=== PATIENT | male | born 1995 | race Caucasian/White ===

== ENCOUNTER 2017-08-16 08:11 | Emergency (ER) | payer OTHER ==
[~2017-08-16] VITALS: Ht 182.9 cm; Wt 69.5 kg
[2017-08-16 08:17] VITALS: Ht 182.9 cm; Wt 69.5 kg
[2017-08-16] MEDS ORDERED: QUET1TAB34 PO (08:40)
[2017-08-16] MEDS ORDERED: BUPR-79 PO (08:40)
--- NOTE | 2017-08-16 08:45 | EMERGENCY ROOM VISIT NOTE ---
History First contact with patient: 08:20 Chief Complaint: LEG PAIN,LEG INJURY Stated Complaint: SEVERE PAIN IN L LEG History of Present Illness The patient is a 22 year old male who presents to the Emergency Room via private vehicle with complaints of "severe pain and left leg". The patient states that he began with shortness of breath and leg pain yesterday. He notes it is in the left medial aspect. He rates the pain as an 8/10. He denies any trauma or injury and notes he awoke with this. It is sharp and intense in nature and he notes that it radiates to the inner left groin region. He notes that the leg feels stiff and heavy and increased with walking. He rates the overall pain as a 5/10. He denies any pain medication. He denies any headache , fevers, chills, chest pain, abdominal pain, nausea, vomiting, diarrhea, incontinence, urinary symptoms. He notes that he smokes 3-4 cigarettes a day and denies drug use. Review of Systems A complete 10-point Review of Systems was discussed with the patient, with pertinent positives and negatives listed in the History of Present Illness. All remaining Review of Systems questions can be considered negative unless otherwise specified. Past Medical/Surgical History No pertinent. Family History No pertinent. Social History Smoking Status: Current Every Day Smoker Pt. lives locally Current/Historical Medications Scheduled Bupropion (Wellbutrin Sr), 150 MG PO DAILY Quetiapine Fumarate (Seroquel), 100 MG PO DAILY Physical Exam Vital Signs Date Time Temp Pulse Resp B/P (MAP) Pulse Ox O2 Delivery O2 Flow Rate FiO2 08/16/17 12:04 36.7 84 18 124/90 96 08/16/17 11:41 84 18 124/90 96 08/16/17 10:10 69 18 145/86 96 Room Air 08/16/17 09:14 66 08/16/17 09:12 74 18 134/78 98 Room Air 08/16/17 09:11 97 Room Air 08/16/17 08:17 36.7 78 18 152/95 96 Room Air Physical Exam VITAL SIGNS - Vital signs and nursing notes were reviewed. Stable. GENERAL - 22-year-old male appearing his stated age who is in no acute distress. Communicates well with provider and answers questions appropriately. SKIN - Without rashes. L medial thigh unremarkable. HEAD - NC/AT. EYES - Sclera anicteric. Palpebral conjunctiva pink and moist with no injection noted. EARS - No deformities of external structures noted on gross examination bilaterally. NOSE - Midline and without cyanosis. No epistaxis or purulent drainage noted. MOUTH/OROPHARYNX - Without perioral cyanosis. NECK - Neck with FROM. No nuchal rigidity. LUNGS - Chest wall symmetric without accessory muscle use, intercostals retractions, or central cyanosis. Normal vesicular breath sounds CTA B/L. No wheezes, rales, or rhonchi appreciated. CARDIAC - RRR with S1/S2. No murmur, rubs, or gallops appreciated. ABDOMEN - Abdominal contour normal without pulsations or visible masses. BS normoactive all four quadrants. No tenderness, palpable masses, hepatosplenomegaly, or ascites noted. EXTREMITIES - No clubbing or peripheral cyanosis. No pretibial edema present.Pulses in tact LLE. +5/5 strength noted in UE/LE bilaterally. NEUROLOGIC - Cranial nerves II through XII grossly intact. Sensory intact to light touch throughout. PSYCH - A&O, and cooperates fully with examiner. Pt is very pleasant and interacts well with examiner. Medical Decision & Procedures ER Provider Diagnostic Interpretation: CHEST ONE VIEW PORTABLE HISTORY: Dyspnea, L leg pain COMPARISON: None. FINDINGS: The lungs are clear. Cardiac silhouette is normal in size. No pleural effusions. No pneumothorax. IMPRESSION: No acute process. Electronically signed by: Michael Hanks M.D. 08/16/2017 9:13 AM Dictated Date/Time: 08/16/2017 9:11 AM LEFT FEMUR 4 VIEWS HISTORY: L leg pain COMPARISON: None. FINDINGS: There is no fracture or dislocation. Soft tissues are unremarkable. No radiopaque foreign bodies. IMPRESSION: Unremarkable left femur. Electronically signed by: Michael Hanks M.D. 08/16/2017 9:20 AM Dictated Date/Time: 08/16/2017 9:18 AM ULTRASOUND LEFT LOWER EXTREMITY VENOUS CLINICAL HISTORY: Left thigh pain. COMPARISON STUDY: No priors. TECHNIQUE: Real-time, grayscale, and color Doppler sonography of the deep veins of the left lower extremity was performed from the inguinal crease to the calf. Compression and augmentation were utilized. FINDINGS: There is no sonographic evidence of deep venous thrombosis identified in the left lower extremity. The common femoral, superficial femoral, and popliteal veins are patent and normally compressible. The greater saphenous vein and the profunda femoris vein at the junction with the common femoral vein are clear. The visualized calf veins are patent. IMPRESSION: There is no sonographic evidence of deep venous thrombosis identified in the left lower extremity. Electronically signed by: Mike Campos M.D. 08/16/2017 10:00 AM Dictated Date/Time: 08/16/2017 10:00 AM Laboratory Results 08/16/17 08:45 Red Blood Count 4.83, Mean Corpuscular Volume 94.2, Mean Corpuscular Hemoglobin 34.0, Mean Corpuscular Hemoglobin Concent 36.0, Mean Platelet Volume 9.0, Neutrophils (%) (Auto) 68.9, Lymphocytes (%) (Auto) 18.6, Monocytes (%) (Auto) 10.5, Eosinophils (%) (Auto) 1.2, Basophils (%) (Auto) 0.4, Neutrophils # (Auto ) 6.26, Lymphocytes # (Auto) 1.69, Monocytes # (Auto) 0.96, Eosinophils # (Auto ) 0.11, Basophils # (Auto) 0.04 08/16/17 08:45 Test 08/16/17 08:45 White Blood Count 9.10 K/uL (4.8-10.8) Red Blood Count 4.83 M/uL (4.7-6.1) Hemoglobin 16.4 g/dL (14.0-18.0) Hematocrit 45.5 % (42-52) Mean Corpuscular Volume 94.2 fL (80-100) Mean Corpuscular Hemoglobin 34.0 pg (25-34) Mean Corpuscular Hemoglobin Concent 36.0 g/dl (32-36) Platelet Count 208 K/uL (130-400) Mean Platelet Volume 9.0 fL (7.4-10.4) Neutrophils (%) (Auto) 68.9 % Lymphocytes (%) (Auto) 18.6 % Monocytes (%) (Auto) 10.5 % Eosinophils (%) (Auto) 1.2 % Basophils (%) (Auto) 0.4 % Neutrophils # (Auto) 6.26 K/uL (1.4-6.5) Lymphocytes # (Auto) 1.69 K/uL (1.2-3.4) Monocytes # (Auto) 0.96 K/uL (0.11-0.59) Eosinophils # (Auto) 0.11 K/uL (0-0.5) Basophils # (Auto) 0.04 K/uL (0-0.2) RDW Standard Deviation 42.2 fL (36.4-46.3) RDW Coefficient of Variation 12.3 % (11.5-14.5) Immature Granulocyte % (Auto) 0.4 % Immature Granulocyte # (Auto) 0.04 K/uL (0.00-0.02) Prothrombin Time 11.0 SECONDS (9.0-12.0) Prothromb Time International Ratio 1.0 (0.9-1.1) Activated Partial Thromboplast Time 30.1 SECONDS (21.0-31.0) Partial Thromboplastin Ratio 1.2 D-Dimer < 190 ug/L FEU (0-500) Anion Gap 6.0 mmol/L (3-11) Est Creatinine Clear Calc Drug Dose 129.4 ml/min Estimated GFR () 141.3 Estimated GFR (Non- 121.9 BUN/Creatinine Ratio 8.9 (10-20) Calcium Level 8.6 mg/dl (8.5-10.1) Total Bilirubin 0.8 mg/dl (0.2-1) Aspartate Amino Transf (AST/SGOT) 15 U/L (15-37) Alanine Aminotransferase (ALT/SGPT) 20 U/L (12-78) Alkaline Phosphatase 95 U/L (45-117) Total Creatine Kinase 134 U/L (39-308) Creatine Kinase MB 1.2 ng/ml (0.5-3.6) Creatine Kinase MB Ratio 0.9 (0-3.0) Troponin I < 0.015 ng/ml (0-0.045) Total Protein 7.2 gm/dl (6.4-8.2) Albumin 3.7 gm/dl (3.4-5.0) Globulin 3.5 gm/dl (2.5-4.0) Albumin/Globulin Ratio 1.1 (0.9-2) Medical Decision Patient was seen and evaluated as above. He presents to us today with pain in his left medial thigh region. There is no testicular, or abdominal pain. He does note shortness of breath. He is well on exam. Bedside EKG was obtained and reveals what appears to be normal sinus rhythm, possible left atrial enlargement, right axis deviation and questionable anterior infarct age indeterminate. Patient was informed upon this finding. He has no chest pain. Troponin is negative. CK-MB negative. D-dimer negative. Chest x-ray negative. Ultrasound and x-ray was obtained of the left leg. These were negative. No evidence of DVT or fracture. I suspect he likely has a musculoskeletal strain. There is no concern of leukocytosis or anemia. Coags normal. Metabolic panel normal. He notes he recently moved to the area one week ago and lives in [facility] but is not employed. I will have him follow with [facility]. In the evaluation and treatment of this patient, the following differential diagnoses were considered: Hip Fracture, Hip Dislocation, Greater Trochanteric Bursitis, Musculoskeletal Pain, Lumbar Radiculopathy. Impression Primary Impression: Leg pain, left Departure Information Dispostion Home / Self-Care Condition GOOD Referrals No Doctor, Assigned (PCP) [facility] Patient Instructions My [facility] Additional Instructions You have been treated in the Emergency Department for leg pain. For pain control, you can use the following [id number] medicines (if >12 yo): - Regular strength (325mg/tab) Tylenol (acetaminophen) 2 tabs every 4-6 hours as needed. Do not exceed 12 tablets in a 24 hour period. Avoid taking more than 3 grams (3000 mg) of Tylenol per day. This includes any other sources of acetaminophen you may take on a regular basis. - Regular strength (200 mg/tab) Advil (ibuprofen) 1-2 tabs every 4-6 hours as needed. Do not exceed a dose of 3200 mg per day. If this is a recent injury (<24 hrs), ice can be applied to the area of pain for the first 3 days to help decrease pain and inflammation. Ice massages can be performed by freezing water in a paper cup, peeling back the cup to expose the ice and then massaging over the affected area. Please follow with [facility] for leg pain and abnormal EKG Return to the Emergency Department if your current symptoms worsen despite treatment course outlined above.
[2017-08-16 09:00] LABS: BASO % 0.4 %; BASO ABS # 0.04 K/uL (0-0.2); COMPLETE YES; EOS % 1.2 %; HEMATOCRIT 45.5 % (42-52); IG% 0.4 %; LYMPH % 18.6 %; LYMPH ABS # 1.69 K/uL (1.2-3.4); MEAN CELL VOLUME 94.2 fL (80-100); MONO % 10.5 %; NEUT % 68.9 %; PLATELET COUNT 208 K/uL (130-400); RED BLOOD COUNT 4.83 M/uL (4.7-6.1)
[2017-08-16 09:11] VITALS: O2SAT 97
[2017-08-16 09:11] LABS: PARTIAL THROMBOPLASTIN RATIO 1.2
--- NOTE | 2017-08-16 09:15 | DIAGNOSTIC IMAGING REPORT ---
CHEST ONE VIEW PORTABLE HISTORY: Dyspnea, L leg pain COMPARISON: None. FINDINGS: The lungs are clear. Cardiac silhouette is normal in size. No pleural effusions. No pneumothorax. IMPRESSION: No acute process. Electronically signed by: Michael Hanks M.D. 08/16/2017 9:13 AM Dictated Date/Time: 08/16/2017 9:11 AM
[2017-08-16 09:20] LABS: ALT/SGPT 20 U/L (12-78); BLOOD UREA NITROGEN 8 mg/dl (7-18); BUN/CREATININE RATIO 8.9 (10-20); CALCIUM 8.6 mg/dl (8.5-10.1); CARBON DIOXIDE 26 mmol/L (21-32); CHLORIDE 108 mmol/L (98-107); CREATININE 0.88 mg/dl (0.60-1.40); GLUCOSE 110 mg/dl (70-99); POTASSIUM 3.6 mmol/L (3.5-5.1); SODIUM 140 mmol/L (136-145)
--- NOTE | 2017-08-16 09:21 | DIAGNOSTIC IMAGING REPORT ---
LEFT FEMUR 4 VIEWS HISTORY: L leg pain COMPARISON: None. FINDINGS: There is no fracture or dislocation. Soft tissues are unremarkable. No radiopaque foreign bodies. IMPRESSION: Unremarkable left femur. Electronically signed by: Michael Hanks M.D. 08/16/2017 9:20 AM Dictated Date/Time: 08/16/2017 9:18 AM
[2017-08-16 09:25] LABS: ALB/GLOB RATIO 1.1 (0.9-2); ALKALINE PHOSPHATASE 95 U/L (45-117); AST/SGOT 15 U/L (15-37); CKMB/CK RATIO 0.9 (0-3.0)
--- NOTE | 2017-08-16 10:02 | DIAGNOSTIC IMAGING REPORT ---
ULTRASOUND LEFT LOWER EXTREMITY VENOUS CLINICAL HISTORY: Left thigh pain. COMPARISON STUDY: No priors. TECHNIQUE: Real-time, grayscale, and color Doppler sonography of the deep veins of the left lower extremity was performed from the inguinal crease to the calf. Compression and augmentation were utilized. FINDINGS: There is no sonographic evidence of deep venous thrombosis identified in the left lower extremity. The common femoral, superficial femoral, and popliteal veins are patent and normally compressible. The greater saphenous vein and the profunda femoris vein at the junction with the common femoral vein are clear. The visualized calf veins are patent. IMPRESSION: There is no sonographic evidence of deep venous thrombosis identified in the left lower extremity. Electronically signed by: Mike Campos M.D. 08/16/2017 10:00 AM Dictated Date/Time: 08/16/2017 10:00 AM
[2017-08-16 12:04] VITALS: BP 124/90; PULSE 84; TEMP 36.7; O2SAT 96
== END 2017-08-16 12:05 | disposition home or self-care (01) ==
LOC: C.EDB 08:13 → C.EDA 12:05
DX: M79.605 Pain in left leg (principal); R06.02 Shortness of breath; F17.210 Nicotine dependence, cigarettes, uncomplicated

== ENCOUNTER 2023-02-09 22:24 | Inpatient (IN) ==
[2023-02-09 22:57] LABS: Basophils # (auto) 0.07 K/uL (0-0.2); Basophils % (auto) 0.8 %; Eosinophils # (auto) 0.49 K/uL (0-0.50); Eosinophils % (auto) 5.6 %; Hematocrit (blood only) 52.6 % (42.0-52.0); Hemoglobin 18.5 g/dl (14.0-18.0); Immature Granulocytes # (auto) 0.03 K/uL (0.01-0.20); Immature Granulocytes % (auto) 0.3 %; Lymphocytes # (auto) 2.84 K/uL (1.2-3.4); Lymphocytes % (auto) 32.3 %; Mean Corpuscular Hemoglobin 31.8 pg (25.0-34.0); Mean Corpuscular Hgb Conc 35.2 g/dL (32.0-36.0); Mean Corpuscular Volume 90.4 fL (80.0-100.0); Mean Platelet Volume 8.5 fL (9.4-12.4); Monocytes # (auto) 0.76 K/uL (0.11-0.59); Monocytes % (auto) 8.7 %; Neutrophils # (auto) 4.59 K/uL (1.40-6.50); Neutrophils % (auto) 52.3 %; Platelet Count 267 K/uL (130-400); RDW Coefficient of Variation 12.4 % (11.5-14.5); Red Blood Count 5.82 M/uL (4.70-6.10); White Blood Count 8.78 K/ul (4.8-10.8)
--- NOTE | 2023-02-09 23:01 | Emergency Department Note ---
History of Present Illness General Chief complaint: Mental Health Evaluation Stated complaint: MENTAL HEALTH EVAL (302) Time Seen by Provider: 02/09/23 22:53 History of Present Illness Maximum Pain Intensity: 4 27-year-old male presents emergency department reportedly spoke to crisis this evening as he was walking down the street and he picked up a quarter and flipped it stating that if it landed on heads to jump off a bridge if it landed on tails he would call crisis. Patient has a history of antisocial disorder and depression. Patient has been off his medications. Patient has suicidal ideation currently with a plan to jump off a bridge. 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 Patient denies nausea vomiting diarrhea abdominal pain chest pain shortness of breath. Patient has no other current complaints. Home Medications Medication Instructions Recorded Confirmed Type venlafaxine 150 mg 150 mg PO DAILY 02/09/23 02/09/23 History capsule,extended release 24 hr Allergies Allergy/AdvReac Type Severity Reaction Status Date / Time No Known Allergies Allergy Verified 05/31/21 07:50 Past Med/Surg History Medical History Antisocial personality disorder Anxiety Asthma Bronchitis Cerebral palsy Depression Nicotine addiction Surgical History No significant past surgical history Family History Other No significant family history Social History Smoking Status: Current every day smoker Tobacco Type: Cigarettes Hx Substance Use: No Preferred Language: Khmer marital status: Single Current Living Situation: Alone current occupational status: employed Feels Safe at Home: No Gender Identity: Male Review of Systems A total of 10 systems reviewed and were otherwise negative Psychiatric: + depression and + suicidal ideation Physical Exam Vital Signs Vital Signs - 24 hr 02/09/23 22:38 02/10/23 01:05 02/10/23 03:00 Temperature 36.5 C Temperature Source Oral Pulse Rate 83 Pulse Rate [Right Finger] 72 Pulse Rhythm [Right Finger] Regular Pulse Strength [Right Finger] Normal Respiratory Rate 18 16 Respiratory Effort / Characteristics Non-Labored Spontaneous Non-Labored Non-Labored Respiratory Depth Normal Deep Normal Respiratory Pattern Regular Regular Blood Pressure 134/77 Blood Pressure [Left Arm] 129/72 Blood Pressure Mean 96 Blood Pressure Mean [Left Arm] 91 Blood Pressure Position [Left Arm] Lying Pulse Oximetry 97 97 Oxygen Delivery Method Room Air Room Air Room Air Sepsis Recent Fever Within 48 Hours No Sepsis New/Unexplained Change in Mental Status No Sepsis Action Taken by Nursing No Action Required GENERAL: Patient is awake alert in no acute distress patient is resting comfortably and showing no signs of anxiety EYES: The conjunctivae are clear. The pupils are round and reactive. EARS, NOSE, MOUTH AND THROAT: The nose is without any evidence of any deformity. Mucous membranes are moist. Tongue is midline. NECK: The neck is nontender and supple. RESPIRATORY: Normal respiratory effort is noted there is no evidence of wheezing rhonchi or rales CARDIOVASCULAR: Regular rate and rhythm noted there no murmurs rubs or gallops normal S1 normal S2. GASTROINTESTINAL: The abdomen is soft. Abdomen is nontender. BACK: No midline tenderness or or step-off noted range of motion in flexion ex tension as well as rotation no signs of muscle spasm noted MUSCULOSKELETAL/EXTREMITIES: There is no evidence of gross deformity full range of motion is noted in the hips and shoulders. SKIN: There is no obvious evidence of any rash. There are no petechiae, pallor or cyanosis noted. NEUROLOGIC: Patient is awake alert and oriented x3 strength is symmetric PSYCH: Suicidal ideation Course Reevaluation(s) Reevaluation #1: Patient's resting in no distress. Patient was evaluated by 3 S. and accepted for admission Time: 03:20 Medical Decision Making Medical Records Attestation: I reviewed the patient's medical records. Home Medications Current Medication List: was personally reviewed by me Laboratory Data Attestation: I reviewed the patient's lab results. Lab work interpreted by me there is hemoconcentration of the CBC, the patient is positive for marijuana 02/09/23 22:39 02/09/23 22:39 Lab Results 02/09/23 02/09/23 02/09/23 Range/Units 22:39 22:39 22:39 WBC 8.78 (4.8-10.8) K/ul RBC 5.82 (4.70-6.10) M/uL Hgb 18.5 H (14.0-18.0) g/dl Hct 52.6 H (42.0-52.0) % MCV 90.4 (80.0-100.0) fL MCH 31.8 (25.0-34.0) pg MCHC 35.2 (32.0-36.0) g/dL RDW Std Deviation 41.0 (36.4-46.3) fL RDW Coeff of Jadyn 12.4 (11.5-14.5) % Plt Count 267 (130-400) K/uL MPV 8.5 L (9.4-12.4) fL Immature Gran % (Auto) 0.3 % Neut % (Auto) 52.3 % Lymph % (Auto) 32.3 % [place] % (Auto) 8.7 % Eos % (Auto) 5.6 % Baso % (Auto) 0.8 % Neut # (Auto) 4.59 (1.40-6.50) K/uL Lymph # (Auto) 2.84 (1.2-3.4) K/uL [place] # (Auto) 0.76 H (0.11-0.59) K/uL Eos # (Auto) 0.49 (0-0.50) K/uL Baso # (Auto) 0.07 (0-0.2) K/uL Immature Gran # (Auto) 0.03 (0.01-0.20) K/uL Sodium 138 (136-145) mmol/L Potassium 3.7 (3.5-5.1) mmol/L Chloride 103 (98-107) mmol/L Carbon Dioxide 27 (21-32) mmol/L Anion Gap 8 (3-11) BUN 18 (6-23) mg/dl Creatinine 1.13 (0.6-1.4) mg/dl Est Cr Clr Drug Dosing 104.2 ml/min Est GFR ( Amer) 102.7 ml/min Est GFR (Non-Af Amer) 88.6 ml/min BUN/Creatinine Ratio 15.9 (10-20) Glucose 96 (70-99(Fasting)) mg/dl Calcium 9.5 (8.6-10.3) mg/dl Total Bilirubin 0.4 (0.2-1.0) mg/dl AST 22 (13-39) U/L ALT 13 (7-52) U/L Alkaline Phosphatase 99 (34-104) U/L Total Protein 8.0 (6.0-8.3) gm/dl Albumin 4.6 (3.4-5.0) gm/dl Globulin 3.4 (2.5-4.0) gm/dl Albumin/Globulin Ratio 1.4 (0.9-2) TSH 0.738 (0.300-4.500) uIu/ml Urine Color Urine Appearance (Clear) Urine pH (4.5-7.5) Ur Specific [place] (1.000-1.030) Urine Protein (Negative) Urine Glucose (UA) (Negative) Urine Ketones (Negative) Urine Blood (Negative) Urine Nitrite (Negative) Urine Bilirubin (Negative) Urine Urobilinogen (Negative) Ur Leukocyte Esterase (Negative) Urine WBC (Auto) (0-5) /hpf Urine RBC (Auto) (0-4) /hpf U Hyaline Cast (Auto) (0-5) /lpf U Epithel Cells (Auto) (0-5) /lpf Urine Bacteria (Auto) (Negative) Salicylates (3.0-30) mg/dl Urine Opiates Screen (Neg) Ur Methadone, Qual (Neg) Acetaminophen (10-30) ug/ml Urine Barbiturates (Neg) Ur Phencyclidine (PCP) (Neg) U Amphetamin/Meth Scrn (Neg) MDMA (Ecstasy) Screen (Neg) U Benzodiazepines Scrn (Neg) Ur Cocaine Metabolite (Neg) U Marijuana (THC) Screen (Neg) Ethyl Alcohol mg/dL (<10.0) mg/dl SARS-CoV-2, RNA, NAAT (NEGATIVE) 02/09/23 02/09/23 02/09/23 Range/Units 22:39 22:39 22:39 WBC (4.8-10.8) K/ul RBC (4.70-6.10) M/uL Hgb (14.0-18.0) g/dl Hct (42.0-52.0) % MCV (80.0-100.0) fL MCH (25.0-34.0) pg MCHC (32.0-36.0) g/dL RDW Std Deviation (36.4-46.3) fL RDW Coeff of Jadyn (11.5-14.5) % Plt Count (130-400) K/uL MPV (9.4-12.4) fL Immature Gran % (Auto) % Neut % (Auto) % Lymph % (Auto) % [place] % (Auto) % Eos % (Auto) % Baso % (Auto) % Neut # (Auto) (1.40-6.50) K/uL Lymph # (Auto) (1.2-3.4) K/uL [place] # (Auto) (0.11-0.59) K/uL Eos # (Auto) (0-0.50) K/uL Baso # (Auto) (0-0.2) K/uL Immature Gran # (Auto) (0.01-0.20) K/uL Sodium (136-145) mmol/L Potassium (3.5-5.1) mmol/L Chloride (98-107) mmol/L Carbon Dioxide (21-32) mmol/L Anion Gap (3-11) BUN (6-23) mg/dl Creatinine (0.6-1.4) mg/dl Est Cr Clr Drug Dosing ml/min Est GFR ( Amer) ml/min Est GFR (Non-Af Amer) ml/min BUN/Creatinine Ratio (10-20) Glucose (70-99(Fasting)) mg/dl Calcium (8.6-10.3) mg/dl Total Bilirubin (0.2-1.0) mg/dl AST (13-39) U/L ALT (7-52) U/L Alkaline Phosphatase (34-104) U/L Total Protein (6.0-8.3) gm/dl Albumin (3.4-5.0) gm/dl Globulin (2.5-4.0) gm/dl Albumin/Globulin Ratio (0.9-2) TSH (0.300-4.500) uIu/ml Urine Color Urine Appearance (Clear) Urine pH (4.5-7.5) Ur Specific [place] (1.000-1.030) Urine Protein (Negative) Urine Glucose (UA) (Negative) Urine Ketones (Negative) Urine Blood (Negative) Urine Nitrite (Negative) Urine Bilirubin (Negative) Urine Urobilinogen (Negative) Ur Leukocyte Esterase (Negative) Urine WBC (Auto) (0-5) /hpf Urine RBC (Auto) (0-4) /hpf U Hyaline Cast (Auto) (0-5) /lpf U Epithel Cells (Auto) (0-5) /lpf Urine Bacteria (Auto) (Negative) Salicylates < 3.0 L (3.0-30) mg/dl Urine Opiates Screen (Neg) Ur Methadone, Qual (Neg) Acetaminophen < 3 L (10-30) ug/ml Urine Barbiturates (Neg) Ur Phencyclidine (PCP) (Neg) U Amphetamin/Meth Scrn (Neg) MDMA (Ecstasy) Screen (Neg) U Benzodiazepines Scrn (Neg) Ur Cocaine Metabolite (Neg) U Marijuana (THC) Screen (Neg) Ethyl Alcohol mg/dL < 10.0 (<10.0) mg/dl SARS-CoV-2, RNA, NAAT NEGATIVE (NEGATIVE) 02/10/23 02/10/23 Range/Units 00:57 00:57 WBC (4.8-10.8) K/ul RBC (4.70-6.10) M/uL Hgb (14.0-18.0) g/dl Hct (42.0-52.0) % MCV (80.0-100.0) fL MCH (25.0-34.0) pg MCHC (32.0-36.0) g/dL RDW Std Deviation (36.4-46.3) fL RDW Coeff of Jadyn (11.5-14.5) % Plt Count (130-400) K/uL MPV (9.4-12.4) fL Immature Gran % (Auto) % Neut % (Auto) % Lymph % (Auto) % [place] % (Auto) % Eos % (Auto) % Baso % (Auto) % Neut # (Auto) (1.40-6.50) K/uL Lymph # (Auto) (1.2-3.4) K/uL [place] # (Auto) (0.11-0.59) K/uL Eos # (Auto) (0-0.50) K/uL Baso # (Auto) (0-0.2) K/uL Immature Gran # (Auto) (0.01-0.20) K/uL Sodium (136-145) mmol/L Potassium (3.5-5.1) mmol/L Chloride (98-107) mmol/L Carbon Dioxide (21-32) mmol/L Anion Gap (3-11) BUN (6-23) mg/dl Creatinine (0.6-1.4) mg/dl Est Cr Clr Drug Dosing ml/min Est GFR ( Amer) ml/min Est GFR (Non-Af Amer) ml/min BUN/Creatinine Ratio (10-20) Glucose (70-99(Fasting)) mg/dl Calcium (8.6-10.3) mg/dl Total Bilirubin (0.2-1.0) mg/dl AST (13-39) U/L ALT (7-52) U/L Alkaline Phosphatase (34-104) U/L Total Protein (6.0-8.3) gm/dl Albumin (3.4-5.0) gm/dl Globulin (2.5-4.0) gm/dl Albumin/Globulin Ratio (0.9-2) TSH (0.300-4.500) uIu/ml Urine Color Yellow Urine Appearance Clear (Clear) Urine pH 6.0 (4.5-7.5) Ur Specific [place] 1.020 (1.000-1.030) Urine Protein Negative (Negative) Urine Glucose (UA) Negative (Negative) Urine Ketones Trace H (Negative) Urine Blood Negative (Negative) Urine Nitrite Negative (Negative) Urine Bilirubin Negative (Negative) Urine Urobilinogen Negative (Negative) Ur Leukocyte Esterase 1+ H (Negative) Urine WBC (Auto) 10-30 H (0-5) /hpf Urine RBC (Auto) 0-4 (0-4) /hpf U Hyaline Cast (Auto) 0 (0-5) /lpf U Epithel Cells (Auto) 10-20 H (0-5) /lpf Urine Bacteria (Auto) Negative (Negative) Salicylates (3.0-30) mg/dl Urine Opiates Screen Neg (Neg) Ur Methadone, Qual Neg (Neg) Acetaminophen (10-30) ug/ml Urine Barbiturates Neg (Neg) Ur Phencyclidine (PCP) Neg (Neg) U Amphetamin/Meth Scrn Neg (Neg) MDMA (Ecstasy) Screen Neg (Neg) U Benzodiazepines Scrn Neg (Neg) Ur Cocaine Metabolite Neg (Neg) U Marijuana (THC) Screen Pos H (Neg) Ethyl Alcohol mg/dL (<10.0) mg/dl SARS-CoV-2, RNA, NAAT (NEGATIVE) MDM Narrative Medical decision making differential diagnosis includes suicidal ideation, anxiety, depression, drug and alcohol abuse Plan is to check labs, case management for psychiatric disposition and planning Patient will be admitted to [facility] for further psychiatric evaluation and treatment Impression & Plan Suicidal ideation Discharge Plan Visit Data Chief Complaint: Mental Health Evaluation Stated Complaint: MENTAL HEALTH EVAL (302) ED Provider: Pascual Jackson Discharge Problem: Suicidal ideation Patient Disposition: Admitted As Inpatient Forms Stand Alone Forms: [facility], Suicide Prevention Resources, Virtual Emergency Department, Important Visit Information Prescriptions Prescriptions: No Action venlafaxine 150 mg capsule,extended release 24hr 150 mg PO DAILY Referrals Referrals: Jeremías Mi DO [Primary Care Provider] -
[2023-02-09 23:13] LABS: Albumin Globulin Ratio 1.4 (0.9-2); Albumin Level 4.6 gm/dl (3.4-5.0); BUN Creatinine Ratio 15.9 (10-20); Bilirubin,Total 0.4 mg/dl (0.2-1.0); Calcium 9.5 mg/dl (8.6-10.3); Creatinine Clr Calc Pharmacy 104.2 ml/min; Est GFR (African American) 102.7 ml/min; Est GFR (Non-African American) 88.6 ml/min; Globulin 3.4 gm/dl (2.5-4.0); Potassium 3.7 mmol/L (3.5-5.1)
[2023-02-09 23:19] LABS: Acetaminophen < 3 ug/ml (10-30); Salicylate < 3.0 mg/dl (3.0-30)
[2023-02-10 01:30] LABS: Amphetamines+Metham, Urine Neg (Neg); Barbiturates, Urine Neg (Neg); Benzodiazepine, Urine Neg (Neg); Cocaine, Urine Neg (Neg); MDMA (Ecstacy), Urine Neg (Neg); Methadone, Urine Neg (Neg); Opiate, Urine Neg (Neg); Phencyclidine, Urine Neg (Neg)
[2023-02-10 01:39] LABS: Appearance Urine Clear (Clear); Bacteria Urine Automated Negative (Negative); Bilirubin Urine Negative (Negative); Blood Urine Negative (Negative); Cast Urine Automated 0 /lpf (0-5); Color Urine Yellow; Glucose Urine UA Negative (Negative); Ketones Urine Trace (Negative); Leukocyte Esterase Urine 1+ (Negative); Nitrite Urine Negative (Negative); Protein Urine Negative (Negative); RBC Urine Automated 0-4 /hpf (0-4); Urobilinogen Urine Negative (Negative)
[2023-02-10] MEDS ORDERED: hydrOXYzine HCl 25 MG TAB PO PRN (03:46)
[2023-02-10] MEDS ORDERED: MAGNESIUM HYDROXIDE SUSP 30 ML UDC PO PRN (03:46)
[2023-02-10] MEDS ORDERED: ACETAMINOPHEN 325 MG TAB PO PRN (03:46)
[2023-02-10] MEDS ORDERED: ALUMINUM/MAGNESIUM SUSP 30 ML UDC PO PRN (03:46)
[2023-02-10] MEDS ORDERED: SODIUM CHLORIDE 0.65% NA SOLN 45 ML (OCEAN) PRN (03:46)
[2023-02-10] MEDS ORDERED: BISMUTH SUBSALICYLATE LIQD 236 ML PO PRN (03:46)
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
[2023-02-10] MEDS: hydrOXYzine HCl 25 MG TAB PO PRN (21:18)
[2023-02-11] MEDS: VENLAFAXINE HCL XR 150 MG CAPXR PO SCH (08:30)
--- NOTE | 2023-02-11 08:59 | Psychiatric Progress Note ---
Date of Service February 11, 2023 Impression / Recommendations Impression 27 y/o M with history of major depression, antisocial personality, alcohol use disorder, cannabis use disorder who presents reporting suicidal thoughts in the context of looming legal problems. He is uncooperative and there appears to be substantial potential external reward related to being in the hospital. He likely does have a depressive disorder that warrants treatment and may well have PTSD as well, but does not appear to be an appropriate candidate for benzodiazepines. MNPR due to irritability and history of aggression, unable to tolerate a roommate 02/11/2023: Ongoing depression and periods of irritability but engaging a bit more and SI lessening. Tolerating initiation of Effexor XR so far. Reviewed interim progress per Dr. Gay's. Diagnostically remains concern for possible secondary gain component of hospitalization given court records note upcoming hearing on 02/17/2023 but also appears to have depression with lack of attention to self-care, irritability and constricted affect. Motivational interviewing done, he is not interested in making any changes to his substance use. Still refusing ROIs for outpatient referrals. (1) Major depressive disorder, recurrent, moderate: (2) Antisocial personality disorder: (3) Suicidal ideation: (4) Alcohol use disorder: (5) Cannabis use disorder: Plan 02/11/2023: Continue current medication and tx plan. 02/10/2023: The patient was admitted to the [facility] ([facility] mental health unit) on q15 min checks (behavioral with suicide precautions) for safety. The patient will participate in group, recreational, and milieu therapies and will be offered additional individual and family sessions as clinically appropriate. * resume venlafaxine XR 150 mg daily * A private room is medically necessary for the safety of self and others due to his irritability and history of aggression. Inventory Assets Strengths: voluntary, "street smarts" Needs: safety and stabilization, medication adjustment, additional coping skills, increased outpatient services, case management Suicide Risk Level Suicide Risk Level: Moderate (q15 min suicide checks) (SI with plan and depression prior to admission but currently denies SI and agrees to let nursing know if he feels unsafe or requires additional support ) Risk Factors Assessment Male: Yes Do You Have Access To A Gun?: No Mental Health Diagnoses: Yes Substance Use Disorders: Yes Previous Attempt: No Family History of Suicide: No Previous Psychiatric Hospitalization: Yes Protective Factors Assessment : No Responsible for Young Children: No Employed: No Stable Relationships: No Supportive Family: No Good Rapport with Provider: No Interval History Identifying Information GURMEET RICHARD is a 27-year-old M who currently is homeless, has a history of MDD and antisocial personality, and was admitted on 02/10/23 02:44 on a 201 voluntary commitment for suicidal thoughts. Chief Complaint "My thoughts get negative when I'm off my meds". Review of Systems Sleep Information Total Hours of Sleep: 7 Sleep Comments: Meal Information Percent Meal Consumed - Breakfast: 0 Percent Meal Consumed - Lunch: 100 Percent Meal Consumed - Dinner: 100 Subjective Subjective Patient was seen & assessed and interval progress reviewed with treatment team nursing and social work. Last evening slightly more participative, attended some groups and watched a movie. This morning initially quite irritability but participated with interview and later asked to speak with me again and more cooperative at this time. Refused morning community meeting but later watching a movie and eating lunch. Denies any side effects from restarting Effexor. Declines offers to start naltrexone or explore recent alcohol use or resources to help support him with his use, denies that he feels he has any problem with alcohol use stating "what I'm 27 years old, I'm not allowed to drink?!". Denies SI today, feels this has improved because "when I'm homeless I get like this" and "my thoughts get negative when I'm off my meds". Has not yet signed ROIs but willing to consider SW making referrals for outpatient mental health services. Irritable when asked about any potential upcoming court dates from legal charges in August 2022, denies knowledge of any upcoming dates. Physical Exam Psychiatric Orientation: alert and oriented x 3 Apperance: + disheveled Eye Contact: + poor eye contact Motor Behavior: no abnormal motor movements Speech: normal rate/rhythm/volume of speech Affect: + irritable affect and + constricted affect Mood: + depressed mood and + irritable mood Thought Process: + circumstantial thought process Thought Content: reality based without delusions Suicidal Thoughts: denies suicidal thoughts Homicidal Thoughts: denies homicidal thoughts Hallucinations: no auditory hallucinations and no visual hallucinations Cognition: recent memory grossly intact, remote memory grossly intact, attention grossly intact and language grossly intact Insight: + limited insight Judgment: + limited judgement Vital Signs (Past 24 Hours) Last Vital Signs Temp 36.3 C L 02/11/23 06:00 Pulse 65 02/11/23 06:00 Resp 18 02/11/23 06:00 BP 110/67 02/11/23 06:45 Pulse Ox 98 02/11/23 06:00 O2 Del Method Room Air 02/11/23 06:00 Results & Data ([facility]) Current Inpatient Medications Current Inpatient Medications: Current Inpatient Medications Acetaminophen (Acetaminophen 325 Mg Tab) 650 mg PO Q4H PRN PRN Reason: Headache or Minor Fever Stop: 03/12/23 03:45 Al Hydrox/Mg Hydrox/Simethicone (Aluminum/Magnesium Susp 30 Ml Udc) 30 ml PO Q4H PRN PRN Reason: GI Upset Stop: 03/12/23 03:45 Bismuth Subsalicylate (Bismuth Subsalicylate Liqd 236 Ml) 15 ml PO PRN PRN PRN Reason: Loose Stool Stop: 03/12/23 03:45 Hydroxyzine HCl (Hydroxyzine Hcl 25 Mg Tab) 50 mg PO HSZ PRN PRN Reason: Insomnia Stop: 03/12/23 03:45 Last Admin: 02/10/23 21:18 Dose: 50 mg Hydroxyzine HCl (Hydroxyzine Hcl 25 Mg Tab) 25 mg PO Q4H PRN PRN Reason: Anxiety Stop: 03/12/23 03:45 Magnesium Hydroxide (Magnesium Hydroxide Susp 30 Ml Udc) 30 ml PO DAILY PRN PRN Reason: Constipation Stop: 03/12/23 03:45 Sodium Chloride (Sodium Chloride 0.65% Na Soln 45 Ml ([place])) 1 - 2 sprays NA PRN PRN PRN Reason: Nasal Dryness/Congestion Stop: 03/12/23 03:45 Venlafaxine HCl (Venlafaxine Hcl Xr 150 Mg Capxr) 150 mg PO QAM EDDY Stop: 03/13/23 08:59 Last Admin: 02/11/23 08:30 Dose: 150 mg Mental Health & Subst Abuse Tx Therapist Name of Therapist: None Supplies Packer Name of Supplies Packer: None
[2023-02-11] MEDS: NICOTINE 21 MG/24 HR TDSY TD SCH (10:28)
[2023-02-11] MEDS: hydrOXYzine HCl 25 MG TAB PO PRN (21:02)
[2023-02-12] MEDS: NICOTINE 21 MG/24 HR TDSY TD SCH (08:41)
[2023-02-12] MEDS: VENLAFAXINE HCL XR 150 MG CAPXR PO SCH (08:41)
--- NOTE | 2023-02-12 09:02 | Psychiatric Progress Note ---
Date of Service February 12, 2023 Impression / Recommendations Impression 27 y/o M with history of major depression, antisocial personality, alcohol use disorder, cannabis use disorder who presents reporting suicidal thoughts in the context of looming legal problems. He is uncooperative and there appears to be substantial potential external reward related to being in the hospital. He likely does have a depressive disorder that warrants treatment and may well have PTSD as well, but does not appear to be an appropriate candidate for benzodiazepines. MNPR due to recent irritability and history of aggression, unable to tolerate a roommate 02/12/2023: Mood improving with lessening of irritability. Given dramatic worsening of his mood last evening will continue to monitor to ensure ongoing and stable improvement. Continue with Effexor XR for depression and likely PTSD. He remains uninterested in any resources for substance use but is agreeable to establishing with a PCP. (1) Major depressive disorder, recurrent, moderate: (2) Antisocial personality disorder: (3) Suicidal ideation: (4) Alcohol use disorder: (5) Cannabis use disorder: Plan 02/12/2023: Continue current medication and tx plan. 02/11/2023: Continue current medication and tx plan. 02/10/2023: The patient was admitted to the [facility] ([facility]) on q15 min checks (behavioral with suicide precautions) for safety. The patient will participate in group, recreational, and milieu therapies and will be offered additional individual and family sessions as clinically appropriate. * resume venlafaxine XR 150 mg daily * A private room is medically necessary for the safety of self and others due to his irritability and history of aggression. Inventory Assets Strengths: voluntary, "street smarts" Needs: safety and stabilization, medication adjustment, additional coping skills, increased outpatient services, case management Suicide Risk Level Suicide Risk Level: Moderate (q15 min suicide checks) (SI with plan and depression prior to admission but currently denies SI and agrees to let nursing know if he feels unsafe or requires additional support ) Risk Factors Assessment Male: Yes Do You Have Access To A Gun?: No Mental Health Diagnoses: Yes Substance Use Disorders: Yes Previous Attempt: No Family History of Suicide: No Previous Psychiatric Hospitalization: Yes Protective Factors Assessment : No Responsible for Young Children: No Employed: No Stable Relationships: No Supportive Family: No Good Rapport with Provider: No Interval History Identifying Information GURMEET RICHARD is a 27-year-old M who currently is homeless, has a history of MDD and antisocial personality, and was admitted on 02/10/23 02:44 on a 201 voluntary commitment for suicidal thoughts. Chief Complaint "I'm good". Review of Systems Sleep Information Total Hours of Sleep: 6.75 Sleep Comments: Received Vistaril for sleep Meal Information Percent Meal Consumed - Breakfast: 100 Percent Meal Consumed - Lunch: 50 Percent Meal Consumed - Dinner: 100 Subjective Subjective Patient was seen & assessed and interval progress reviewed with treatment team nursing and social work. Opened up more as the day progressed including showering, attended community meeting but reported his mood as very low. Asked for and got Vistaril last night and found this helpful for anxiety and insomnia. Today reports his mood has improved, no side effects to the Effexor. Denies SI. Agreeable to signing an HECTOR to establish with a PCP so he will not run out of his psychiatric medications again as this seems to prompt the return of SI. Reviewed and provided him with county court documentation via online public system that he has a hearing on 02/17/2023 scheduled and encouraged him to reach out to his public safety telecommunicator to clarify this which he agrees to do and feels comfortable navigating on his own. Declines offer for referral for case management services. Physical Exam Psychiatric Orientation: alert and oriented x 3 Apperance: appropriately dressed and + disheveled Eye Contact: + fair eye contact Motor Behavior: no abnormal motor movements Speech: normal rate/rhythm/volume of speech Affect: + constricted affect Mood: + depressed mood Thought Process: goal directed thought process Thought Content: reality based without delusions Suicidal Thoughts: denies suicidal thoughts Homicidal Thoughts: denies homicidal thoughts Hallucinations: no auditory hallucinations and no visual hallucinations Cognition: recent memory grossly intact, remote memory grossly intact, attention grossly intact and language grossly intact Insight: + limited insight Judgment: + limited judgement Vital Signs (Past 24 Hours) Last Vital Signs Temp 36.3 C L 02/12/23 06:00 Pulse 77 02/12/23 06:00 Resp 16 02/12/23 06:00 BP 129/77 02/12/23 06:36 Pulse Ox 98 02/12/23 06:00 O2 Del Method Room Air 02/12/23 06:00 Results & Data ([facility]) Current Inpatient Medications Current Inpatient Medications: Current Inpatient Medications Acetaminophen (Acetaminophen 325 Mg Tab) 650 mg PO Q4H PRN PRN Reason: Headache or Minor Fever Stop: 03/12/23 03:45 Al Hydrox/Mg Hydrox/Simethicone (Aluminum/Magnesium Susp 30 Ml Udc) 30 ml PO Q4H PRN PRN Reason: GI Upset Stop: 03/12/23 03:45 Bismuth Subsalicylate (Bismuth Subsalicylate Liqd 236 Ml) 15 ml PO PRN PRN PRN Reason: Loose Stool Stop: 03/12/23 03:45 Hydroxyzine HCl (Hydroxyzine Hcl 25 Mg Tab) 50 mg PO HSZ PRN PRN Reason: Insomnia Stop: 03/12/23 03:45 Last Admin: 02/11/23 21:02 Dose: 50 mg Hydroxyzine HCl (Hydroxyzine Hcl 25 Mg Tab) 25 mg PO Q4H PRN PRN Reason: Anxiety Stop: 03/12/23 03:45 Last Admin: 02/11/23 12:46 Dose: 25 mg Magnesium Hydroxide (Magnesium Hydroxide Susp 30 Ml Udc) 30 ml PO DAILY PRN PRN Reason: Constipation Stop: 03/12/23 03:45 Miscellaneous (Remove Nicoderm Patch) 1 each N/A DAILY@2100 PENDING SALE TO [facility] Stop: 03/13/23 20:59 Last Admin: 02/11/23 21:02 Dose: 1 each Nicotine (Nicotine 21 Mg/24 Hr Tdsy) 21 mg TD QAM EDDY Stop: 03/13/23 10:14 Last Admin: 02/12/23 08:41 Dose: 21 mg Sodium Chloride (Sodium Chloride 0.65% Na Soln 45 Ml ([place])) 1 - 2 sprays NA PRN PRN PRN Reason: Nasal Dryness/Congestion Stop: 03/12/23 03:45 Venlafaxine HCl (Venlafaxine Hcl Xr 150 Mg Capxr) 150 mg PO QAM EDDY Stop: 03/13/23 08:59 Last Admin: 02/12/23 08:41 Dose: 150 mg Mental Health & Subst Abuse Tx Therapist Name of Therapist: None Ultrasound Technol Name of Ultrasound Technol: None
[2023-02-12 15:58] LABS: Marijuana Quant, GCMS Urine 505 ng/mL (<5)
[2023-02-12] MEDS: hydrOXYzine HCl 25 MG TAB PO PRN (20:39)
[2023-02-13] MEDS: NICOTINE 21 MG/24 HR TDSY TD SCH (08:39)
[2023-02-13] MEDS: VENLAFAXINE HCL XR 150 MG CAPXR PO SCH (08:43)
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
== END 2023-02-13 10:55 | disposition home or self-care (01) | DRG 885 ==
LOC: ED 22:24 → SUATTDRO 02-10 02:44 → 3S 02-10 02:44